=== PATIENT | male | born 1945 | race Caucasian/White ===

== ENCOUNTER 2016-12-06 10:36 | Emergency (ER) | payer MEDICARE ==
[~2016-12-06] VITALS: Ht 167.6 cm; Wt 81.8 kg
[2016-12-06] MEDS ORDERED: ALBU8HFA IH (10:51)
[2016-12-06] MEDS ORDERED: IPRATROPIUM BROMIDE 0.5 MG/2.5 ML NEB SOLUTION NEB ONE (11:15)
[2016-12-06] MEDS ORDERED: ALBUTEROL SULFATE 2.5 MG/0.5 ML NEB SOLUTION NEB ONE (11:15)
[2016-12-06] MEDS ORDERED: AmLODIPine BESYLATE 5 MG TABLET PO ONE (11:15)
[2016-12-06 11:24] VITALS: BP 158/87
== END 2016-12-06 12:00 | disposition left against medical advice (07) ==
LOC: EMS 10:38
DX: J44.9 Chronic obstructive pulmonary disease, unspecified (principal); J45.909 Unspecified asthma, uncomplicated; I10 Essential (primary) hypertension
CPT/HCPCS: 93005; 94640; 99285